=== PATIENT | male | born 1960 | race Caucasian/White ===

== ENCOUNTER 2017-08-22 09:16 | Outpatient (CLI) | payer MEDICARE, MEDICAID ==
[2017-08-22 09:56] LABS: ABG BASE EXCESS 3.5 mmol/L (-2.0-3.0); ABG OXYGEN SATURATION 94.9 % (95-98); ABG PCO2 (T) 41.8 mmHg (35.0-48.0); ABG PH (T) 7.444 (7.350-7.450); ABG PO2 (T) 69.8 mmHg (83-108); ALLEN'S TEST Positive; FCOHb 0.3 % (0.5-1.5); FMetHb 0.4 % (0.3-1.12); FO2Hb 94.2 % (94-100); TOTAL HEMOGLOBIN 20.5 G/dl (14.0-18.0)
== END 2017-08-22 23:59 | disposition home or self-care (01) ==
LOC: LAB 09:16
PROVIDERS: ATTEND Internal Medicine Hematology & Oncology
DX: D75.9 Disease of blood and blood-forming organs, unspecified (principal)
CPT/HCPCS: 36600; 82803; 85018

== ENCOUNTER 2020-04-01 09:15 | Observation (INO) | payer BC, MEDICAID, MEDICARE ==
[~2020-04-01] VITALS: Ht 198.1 cm; Wt 172.7 kg
[2020-04-01 10:17] LABS: BASOPHILS # (AUTO) 0.1 X10'3 (0-0.2); BASOPHILS % (AUTO) 0.8 % (0-1); EOSINOPHILS # (AUTO) 0.3 X10'3 (0-0.9); EOSINOPHILS % (AUTO) 3.2 % (0-6); HEMATOCRIT 55.2 % (42.0-52.0); LYMPHOCYTES # (AUTO) 2.5 X10'3 (1.1-4.8); LYMPHOCYTES % (AUTO) 24.6 % (21-51); MEAN CORPUSCULAR HEMOGLOBIN 33.2 PG (27.0-31.0); MEAN CORPUSCULAR HGB CONC 34.7 g/dL (33.0-36.5); MEAN CORPUSCULAR VOLUME 95.5 FL (78-98); MEAN PLATELET VOLUME 7.4 FL (7.4-10.4); MONOCYTES # (AUTO) 1.7 X10'3 (0-0.9); MONOCYTES % (AUTO) 16.4 % (2-12); NEUTROPHILS # (AUTO) 5.5 X10'3 (1.8-7.7); PLATELET COUNT 266 X10'3 (140-440); RED BLOOD COUNT 5.78 X10'6 (4.70-6.10); RED CELL DISTRIBUTION WIDTH 15.1 % (11.5-14.5); WHITE BLOOD COUNT 10.1 X10'3 (4.5-11.0)
[2020-04-01 10:21] LABS: HEMOGLOBIN 19.2 g/dl (14.0-17.9)
[2020-04-01 10:38] LABS: CHLORIDE 102 MMOL/L (99-107); GLUCOSE 95 MG/DL (70-104); POTASSIUM 3.9 MMOL/L (3.5-5.1); SODIUM 139 MMOL/L (135-145); TOTAL CARBON DIOXIDE 26.5 MMOL/L (24-32)
[2020-04-01 10:39] LABS: ALANINE AMINOTRANSFERASE 64 U/L (12-78); ALBUMIN 3.7 G/DL (3.4-5.0); ALBUMIN/GLOBULIN RATIO 0.9 (1.1-1.5); ALKALINE PHOSPHATASE 86 IU/L (46-116); ANION GAP 11 (8-16); ASPARTATE AMINO TRANSFERASE 46 U/L (10-37); BILIRUBIN,TOTAL 1.2 MG/DL (0.1-1.0); BLOOD UREA NITROGEN 19 MG/DL (7-18); BUN/CREATININE RATIO 20.2 (5.4-32.0); CALCIUM 9.3 MG/DL (8.5-10.1); CREATININE 0.94 MG/DL (0.60-1.10); eGFR 82 ML/MIN
[2020-04-01] MEDS ORDERED: normal saline 1000ml 1,000 ML IV ONE (10:45)
[2020-04-01] MEDS ORDERED: nitroGLYCERIN 0.4mg SUBLingual tab SL PRN ×2 (12:05→16:20)
[2020-04-01] MEDS ORDERED: morphine 2 MG/ML inj. syringe IV PRN ×2 (12:05)
[2020-04-01] MEDS ORDERED: acetaminophen 325mg tablet PO PRN ×2 (12:05)
[2020-04-01] MEDS ORDERED: HYDROcodone/acetaminophen 5mg/325mg tablet PO PRN (12:05)
[2020-04-01] MEDS ORDERED: HYDROcodone/acetaminophen 10/325mg tab PO PRN (12:05)
[2020-04-01] MEDS ORDERED: ondansetron/PF 4mg/2ml inj IV PRN (12:05)
[2020-04-01] MEDS ORDERED: magnesium hydroxide 30ml (MOM) UD suspension PO PRN (12:05)
[2020-04-01] MEDS ORDERED: mag hydrox/Alum hydrox/simeth 30ml oral suspension PO PRN (12:05)
[2020-04-01] MEDS ORDERED: METH-350 PO (12:21)
[2020-04-01] MEDS ORDERED: LOSA1TAB39 PO (12:21)
[2020-04-01] MEDS ORDERED: BUPR-286 PO (12:21)
[2020-04-01] MEDS ORDERED: DULO60CA65 PO (12:21)
[2020-04-01] MEDS ORDERED: CARV25TA5 PO (12:21)
[2020-04-01] MEDS ORDERED: AMLO10TA13 PO (12:21)
[2020-04-01] MEDS ORDERED: ROSU10TA28 PO (12:21)
[2020-04-01] MEDS ORDERED: MULT-227 PO (12:22)
[2020-04-01] MEDS ORDERED: ASPI-1265 PO (12:22)
[2020-04-01] MEDS ORDERED: IBUP-1985 PO (12:26)
[2020-04-01] MEDS ORDERED: AMLO10TA PO (12:26)
[2020-04-01 13:12] LABS: D-DIMER 0.25 MG/L FEU (0-0.50)
[2020-04-01 13:35] LABS: D-DIMER 0.29 MG/L FEU (0-0.50)
[2020-04-01 13:38] LABS: HEMOGLOBIN A1C 5.5 % (4.5-6.2)
[2020-04-01] MEDS ORDERED: regadenoson 0.4mg/5ml syringe IV PRN (16:20)
[2020-04-01] MEDS ORDERED: metoprolol tartrate 1mg/ml inj IV PRN (16:20)
[2020-04-01] MEDS ORDERED: aminophylline 250mg/10ml inj. IV PRN (16:20)
[2020-04-01 18:00] VITALS: BP 126/73
--- NOTE | 2020-04-01 19:00 | NUR ---
received report from Pia in the ER, will asume care once pt arrives to unit
--- NOTE | 2020-04-01 19:20 | NUR ---
Received pt from ER assumed care.
[2020-04-01] MEDS: carVEDilol 12.5mg tablet PO SCH (19:42)
--- NOTE | 2020-04-01 19:43 | NUR ---
IPA 3016b. pt with 1 out of 10 cp and denies any need for adtl prn meds. pt is polite and cooperative. Stable vs.
[2020-04-01] MEDS ORDERED: methylphenidate 5mg tablet PO SCH (20:00)
[2020-04-01] MEDS ORDERED: atorvastatin 20mg tablet PO SCH (21:00)
[2020-04-01 22:00] VITALS: BP 118/67
[2020-04-02] VITALS (9 sets, daily range): BP systolic 128–138; BP diastolic 69–89
[2020-04-02 06:32] LABS: BASOPHILS # (AUTO) 0.1 X10'3 (0-0.2); BASOPHILS % (AUTO) 0.9 % (0-1); EOSINOPHILS # (AUTO) 0.3 X10'3 (0-0.9); EOSINOPHILS % (AUTO) 3.6 % (0-6); LYMPHOCYTES # (AUTO) 2.3 X10'3 (1.1-4.8); LYMPHOCYTES % (AUTO) 24.7 % (21-51); MEAN CORPUSCULAR HEMOGLOBIN 33.1 PG (27.0-31.0); MEAN CORPUSCULAR HGB CONC 34.2 g/dL (33.0-36.5); MEAN CORPUSCULAR VOLUME 96.8 FL (78-98); MEAN PLATELET VOLUME 7.6 FL (7.4-10.4); MONOCYTES # (AUTO) 1.7 X10'3 (0-0.9); MONOCYTES % (AUTO) 18.9 % (2-12); NEUTROPHILS # (AUTO) 4.7 X10'3 (1.8-7.7); NEUTROPHILS % (AUTO) 51.9 % (42-75); PLATELET COUNT 261 X10'3 (140-440); RED BLOOD COUNT 5.58 X10'6 (4.70-6.10); RED CELL DISTRIBUTION WIDTH 14.6 % (11.5-14.5); WHITE BLOOD COUNT 9.1 X10'3 (4.5-11.0)
--- NOTE | 2020-04-02 06:44 | NUR ---
Patient in room PCU 3016. I have received report from Emma YARBROUGH and had the opportunity to ask questions and assume patient care.
[2020-04-02 06:50] LABS: HEMOGLOBIN 18.5 g/dl (14.0-17.9)
[2020-04-02 06:56] LABS: ALBUMIN 3.3 G/DL (3.4-5.0); ANION GAP 5 (8-16); BLOOD UREA NITROGEN 17 MG/DL (7-18); BUN/CREATININE RATIO 17.9 (5.4-32.0); CALCIUM 8.5 MG/DL (8.5-10.1); CHLORIDE 105 MMOL/L (99-107); CHOL/HDL RATIO 4.6 (0.00-4.99); CHOLESTEROL 124 MG/DL (0-200); CREATININE 0.95 MG/DL (0.60-1.10); GLUCOSE 121 MG/DL (70-104); HDL CHOLESTEROL 27 MG/DL (35-60); LDL CHOLESTEROL 72 MG/DL (50-100); POTASSIUM 3.8 MMOL/L (3.5-5.1); SODIUM 140 MMOL/L (135-145); TOTAL CARBON DIOXIDE 30.3 MMOL/L (24-32); TRIGLYCERIDES 185 MG/DL (20-135); eGFR 81 ML/MIN
[2020-04-02] MEDS ORDERED: aspirin 81mg tab.chew PO SCH (08:00)
[2020-04-02] MEDS ORDERED: HYDROchlorothiazide 25mg tablet PO SCH (08:00)
[2020-04-02] MEDS ORDERED: methylphenidate 5mg tablet PO SCH (08:00)
[2020-04-02] MEDS ORDERED: buproprion 150mg XL (24-hour) tablet PO SCH (08:00)
[2020-04-02] MEDS ORDERED: enoxaparin 40mg/0.4ml syringe SUBCUT SCH (08:00)
[2020-04-02] MEDS ORDERED: amLODIPine 5mg tablet PO SCH (08:00)
[2020-04-02] MEDS ORDERED: multivitamins, therapeutics tablet PO SCH (08:00)
[2020-04-02] MEDS ORDERED: aspirin 81mg tablet.DR PO SCH (08:00)
[2020-04-02] MEDS ORDERED: duloxetine 30mg CAPSULE.DR PO SCH (08:00)
[2020-04-02] MEDS ORDERED: losartan 50mg tablet PO SCH (08:00)
[2020-04-02] MEDS: carVEDilol 12.5mg tablet PO SCH (08:38)
--- NOTE | 2020-04-02 09:31 | NUR ---
Dr. Romo at bedside with nurse and patient. MD was notified that patient has ordered two types of aspirin. Keep chewable, DC aspirin 81 Tablet
[2020-04-02] MEDS ORDERED: buPROPion SR 150mg tablet PO SCH (11:22)
--- NOTE | 2020-04-02 13:08 | NUR ---
Paged Dr. Romo PAGER ID: [phone] MESSAGE: Re: Alexi Ceja [id number]. FYI pts stress test results are in. May we feed pt? Thank you Concetta YARBROUGH [phone] Addendum: 04/02/20 at 1328 by Concetta Avila RN Dr. Romo responded. Mary scan was negative and patient may be discharge, awaiting discharge instructions. Will continue to monitor.
--- NOTE | 2020-04-02 14:20 | NUR ---
Patient OK to discharge per MD orders. Pts tele box and PIV was removed. All discharge instructions were gone over and all medication education was reviewed. No new medications per MD, but All medications were familiar with patient. Patient was able to dress self and escorted out on foot by aide. All items were collected and sent with patient. Patient escorted to main lobby out to his car.
== END 2020-04-02 14:15 | disposition home or self-care (01) ==
LOC: ER 09:15 → ED HOLD 12:05 → PCU 3S 19:50
PROVIDERS: ADMIT Internal Medicine; ATTEND Internal Medicine
DX: R07.89 Other chest pain (principal); I10 Essential (primary) hypertension; F32.9 Major depressive disorder, single episode, unspecified; D75.1 Secondary polycythemia; G47.30 Sleep apnea, unspecified; E78.5 Hyperlipidemia, unspecified; E89.0 Postprocedural hypothyroidism; E78.00 Pure hypercholesterolemia, unspecified; M19.90 Unspecified osteoarthritis, unspecified site; G89.29 Other chronic pain; M54.9 Dorsalgia, unspecified; Z79.82 Long term (current) use of aspirin; Z79.899 Other long term (current) drug therapy
CPT/HCPCS: 36415; 71045; 78452; 80048; 80053; 80061; 83036; 83880; 84484; 85025; 85379; 87081; 93005; 93017; 96372; 99285; A9500; G0378; J2785; J7030; J1650